=== PATIENT | female | born 1960 | race Caucasian/White ===

== ENCOUNTER 2017-03-06 10:18 | Emergency (ER) | payer OTHER ==
[~2017-03-06] VITALS: Ht 154.9 cm; Wt 64.9 kg
[~2017-03-06 10:18] MED LIST: ALBUTEROL INH; ALBUTEROL NEB; ALBUTEROL NEBULIZER; ALPRAZOLAM 0.0.25 M1 PO; AMBIEN 10 MG TA10 MG PO; ATARAX; ATARAX PO; BACTROBAN CREAM30 GM TOP; COUMADIN 5 MG TA5 M1 OR; CRESTOR10 MG PO; CRESTOR40 MG; CRESTOR40 MG PO; DESYREL PO; DEXILANT60 MG PO; DICLOFENAC POTA50 MG PO; DOXYCYCLINE 10100 MG PO; EFFEXOR; EFFEXOR37.5 MG PO; EFFEXOR75 MG PO; ENOXAPARIN30 MG/0.3 SQ; HYDROCODON-ACE1 EAC7 PO; LOVENOX SQ; MOBIC15 MG; NABUMETONE 750750 M1 PO; NAPROSYN500 MG PO; NEURONTIN 400400 M1 PO; NITROGLYCERIN0.4 MG SUBLING; NORCO 5-325 TA1 EACH PO; OXYIR5 MG PO; PHENTERMINE H37.5 MG PO; PREDNISONE 20 M20 MG PO; PROTONIX40 M2 PO; PROTONIX40 MG PO; PROVENTIL; SINGULAIR; SINGULAIR PO; TOPAMAX 25 MG T25 M1 PO; ULTRAM 50MG TAB50 MG; ULTRAM 50MG TAB50 MG PO; VENLAFAXINE HC150 M1 PO; VENTOLIN HFA 1818 GM INH; XANAX 0.25 MG0.25 MG; ZPAK PO
[2017-03-06] MEDS ORDERED: TESSALON PERLE100 MG PO (11:19)
[2017-03-06] MEDS ORDERED: AMOXICILLIN 50500 MG PO (11:19)
[2017-03-06] MEDS ORDERED: VENTOLIN HFA 1818 GM INH (11:19)
[2017-03-06] MEDS ORDERED: FLONASE 0.05%50 MCG NASAL (11:19)
[2017-03-06 11:37] VITALS: BP 124/74
== END 2017-03-06 11:37 | disposition home or self-care (01) ==
LOC: ER 10:18
DX: H66.92 Otitis media, unspecified, left ear (principal); J45.909 Unspecified asthma, uncomplicated; J06.9 Acute upper respiratory infection, unspecified; Z90.710 Acquired absence of both cervix and uterus; E78.5 Hyperlipidemia, unspecified; Z86.73 Personal history of transient ischemic attack (TIA), and cerebral infarction without residual deficits; E89.0 Postprocedural hypothyroidism; Z85.41 Personal history of malignant neoplasm of cervix uteri; I25.2 Old myocardial infarction; Z88.6 Allergy status to analgesic agent; Z88.5 Allergy status to narcotic agent; Z88.8 Allergy status to other drugs, medicaments and biological substances; F10.99 Alcohol use, unspecified with unspecified alcohol-induced disorder

== ENCOUNTER → 2018-04-05 | Outpatient (CLI) | payer OTHER ==
[~2018-04-05] VITALS: Ht 157.5 cm; Wt 80.7 kg
[~2018-04-05] MED LIST changes: +AMOXICILLIN 50500 MG PO; +FLONASE 0.05%50 MCG NASAL; +FLUOXETINE HCL40 MG PO; +TESSALON PERLE100 MG PO
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
[2018-04-05 10:22] VITALS: BP 137/89
== END | disposition home or self-care (01) ==
LOC: PAIN 06:58
DX: M51.16 Intervertebral disc disorders with radiculopathy, lumbar region (principal); G89.29 Other chronic pain; I25.10 Atherosclerotic heart disease of native coronary artery without angina pectoris; I25.2 Old myocardial infarction; E07.9 Disorder of thyroid, unspecified; E78.00 Pure hypercholesterolemia, unspecified; J45.909 Unspecified asthma, uncomplicated; M79.7 Fibromyalgia; Z85.41 Personal history of malignant neoplasm of cervix uteri; Z90.710 Acquired absence of both cervix and uterus; Z86.73 Personal history of transient ischemic attack (TIA), and cerebral infarction without residual deficits; Z98.890 Other specified postprocedural states; Z88.8 Allergy status to other drugs, medicaments and biological substances; Z79.891 Long term (current) use of opiate analgesic; Z79.899 Other long term (current) drug therapy

== ENCOUNTER → 2018-04-19 | Outpatient (CLI) | payer OTHER ==
[~2018-04-19] VITALS: Ht 160 cm; Wt 81.7 kg
--- NOTE | ~2018-04-19 | HPC ---
[facility] [place] [address] PAIN MANAGEMENT CONSULTATION Name: BRENDEN ROBERTSON Room #: REG [facility] M.Jose.#: [id number] Admission: 04/19/18 Attend Phys: Yuridia Ruggiero MD Discharge: Date of : 60 Report #: [id number] THIS REPORT FOR: //name// CC: Murphy Ruggiero DATE OF SERVICE: 04/19/2018 FOLLOWUP COMPLAINT: Here for an injection. FOLLOWUP HISTORY: The patient is a 57-year-old female who has been seen in the pain clinic because of pain, which she has been experiencing that is radiating down into her right leg. She has had knee surgery in the past. She experienced bowed knees. States that after the surgery, it did change her gait. She is about 1 inch taller. Noticed that the pain at this juncture makes it more difficult to walk. She has difficulty climbing stairs. She has used nonsteroidal anti-inflammatory medications like Aleve. Has found that hydrocodone is somewhat helpful. The patient has been seen by a chiropractor in the past. She has returned to the pain clinic for an injection in the lumbar area and is having pain that is radiating down into the right lumbar area in the posterior portion of her leg and calf. ALLERGIES: MORPHINE, ASPIRIN, DEMEROL, AND AMBIEN. MEDICATIONS: Fluoxetine 40 mg, Naprosyn 500 mg, nitroglycerin sublingual 0.4 mg p.r.n., alprazolam 0.25 mg t.i.d., and, Dexilant 60 mg, Crestor 10 mg, phentermine 37.5 mg, hydrocodone 5/325 q.4-6h. p.r.n., gabapentin 400 mg t.i.d., trazodone 50 mg at bedtime. PAIN CLINIC ASSESSMENT: 1. History of osteoarthritis. The patient has had some surgery regarding her elbows, wrists, and bilateral knee surgery. The patient is not being treated for rheumatoid arthritis. 2. Height 5 feet 3 inches, weight 180 pounds, BMI 31.9. 3. Vital signs: Blood pressure 139/86, pulse 99, respiratory rate 18, room air saturation 98%. 4. Pain intensity 07/24. 5. Fall risk. The patient does have some dizziness. Does need some help with standing and walking. The patient does use a cane. Also, uses fuentes, furniture, and other people to help assist her in walking. 6. The patient is not on a blood thinning medication. 7. History of hypertension. The patient is not being treated for hypertension. 8. Opioid therapy greater than 6 weeks. The patient is receiving hydrocodone to help mitigate her pain. 9. [place] [address] PAIN MANAGEMENT CONSULTATION Name: BRENDEN ROBERTSONN Room #: REG CL [facility].#: [id number] Admission: 04/19/18 Attend Phys: Yuridia Ruggiero MD Discharge: Date of : 60 Report #: [id number] 10. Functional assessment tool. 11. Recreational drug use. The patient denies use of recreational drugs. 12. Tobacco: The patient has never smoked. 13. Alcohol: The patient denies frequent use of alcoholic beverages. PHYSICAL EXAMINATION: GENERAL: The patient is a well-developed white female, appears her stated age. She is alert and oriented x 3. Notes that she has pain and discomfort radiating down into her right buttock. HEENT: Normocephalic, atraumatic. Extraocular eye muscles intact. Sclerae nonicteric. Hearing is within normal limits. NECK: Without adenopathy, JVD, or bruits. HEART: Regular rate. LUNGS: Clear to auscultation. ABDOMEN: Nontender. EXTREMITIES: Upper extremity muscle strength is judged to be 5/5 for the major muscle groups without significant neurologic changes. The patient is without significant scoliosis, kyphosis, or lordosis. The patient notes increased discomfort when standing. Notes pain and discomfort on the right leg and walks with an antalgic gait because of pain and discomfort. Straight leg raise is positive. Complains of shooting and burning pain, radiating down the posterior portion of her leg. IMPRESSION: 1. Lumbar radiculopathy, L5-S1 note of an extrusion of the disk with contact of the S1 nerve root. 2. History of cerebrovascular accident. 3. Coronary artery disease, status post myocardial infarct x 2. 4. Chronic low back pain. RECOMMENDATIONS: We discussed treatment options with the patient. Risks and benefits of an epidural steroid injection were again reviewed. Possible complications of the procedure were discussed. The patient elects to proceed. PROCEDURE NOTE: The patient was assisted in getting on the table in the examination room. Her back was sterilely prepped in the L5-S1 area. Fluoroscopy using anterior, posterior as well as lateral viewing were incorporated. Her back in the right paraspinous area was injected with local anesthetic at L5-S1. A 17-gauge Tuohy with loss of resistance technique was used to gain access to the epidural space. There was no CSF, heme or paresthesia. Total of 80 mg Depo-Medrol, 40 mg triamcinolone, and 2 mL of 0.25% bupivacaine was injected. The patient tolerated the procedure well. She will follow up in the future as needed. She will call us if she has any concerns. [facility] [address] [place] [address] PAIN MANAGEMENT CONSULTATION Name: ROBERTSONBRENDEN Room #: REG JOHNNIE Alvarenga#: [id number] Admission: 04/19/18 Attend Phys: Yuridia Ruggiero MD Discharge: Date of : 60 Report #: [id number] We would like to thank you for letting us participate in her care. We hope she continues to improve. By: [id number] Yuridia Ruggiero MD /PMT
[2018-04-19 10:10] VITALS: BP 139/86
== END | disposition home or self-care (01) ==
LOC: PAIN 06:52
DX: M54.16 Radiculopathy, lumbar region (principal); M54.5 Low back pain; G89.29 Other chronic pain; I25.10 Atherosclerotic heart disease of native coronary artery without angina pectoris; I25.2 Old myocardial infarction; M17.11 Unilateral primary osteoarthritis, right knee; J45.909 Unspecified asthma, uncomplicated; Z86.73 Personal history of transient ischemic attack (TIA), and cerebral infarction without residual deficits; Z88.8 Allergy status to other drugs, medicaments and biological substances; Z79.899 Other long term (current) drug therapy; Z79.891 Long term (current) use of opiate analgesic